=== PATIENT | female | born 1990 | race Caucasian/White ===

== ENCOUNTER 2018-08-27 12:49 | Emergency (ER) | payer OTHER ==
[~2018-08-27] VITALS: Ht 154.9 cm; Wt 59.0 kg
[2018-08-27] MEDS ORDERED: NORCO 5-325 TA1 EACH PO (13:50)
[2018-08-27] MEDS ORDERED: CLEOCIN HCL150 MG PO (13:50)
[2018-08-27 13:51] LABS: INFLUENZA A ANTIGEN None Detected (None Detect); INFLUENZA B ANTIGEN None Detected (None Detect)
[2018-08-27] MEDS ORDERED: MEDROLDOSEPACK PO (13:51)
[2018-08-27 14:41] VITALS: BP 123/57
== END 2018-08-27 14:42 | disposition home or self-care (01) ==
LOC: M.ERS 12:49
PROVIDERS: Physician Assistant
DX: J03.90 Acute tonsillitis, unspecified (principal); Z88.2 Allergy status to sulfonamides; Z88.1 Allergy status to other antibiotic agents

== ENCOUNTER 2019-01-21 07:18 | Emergency (ER) | payer OTHER ==
[~2019-01-21] VITALS: Ht 157.5 cm; Wt 61.2 kg
[~2019-01-21 07:18] MED LIST: CLEOCIN HCL150 MG PO; MEDROLDOSEPACK PO; NORCO 5-325 TA1 EACH PO
[2019-01-21 07:28] VITALS: BP 114/68
[2019-01-21] MEDS ORDERED: PRENATAL PO (07:31)
[2019-01-21] MEDS ORDERED: ONDANSETRON HCL4 M2 PO (07:31)
== END 2019-01-21 07:43 | disposition home or self-care (01) ==
LOC: M.ERS 07:18
DX: O99.611 Diseases of the digestive system complicating pregnancy, first trimester (principal); K59.00 Constipation, unspecified; Z88.2 Allergy status to sulfonamides; Z3A.09 9 weeks gestation of pregnancy